=== PATIENT | female | born 1990 | race Caucasian/White ===

== ENCOUNTER 2016-10-01 12:51 | Emergency (ER) | payer SELFPAY ==
[2016-10-01 13:00] VITALS: BP 117/80
--- NOTE | 2016-10-01 13:15 | ER Document Report ---
ED Medical Screen (RME) - General Chief Complaint: Abdominal Pain Stated Complaint: ABDOMINAL PAIN/DIZZINESS Notes: Patient says she's been experiencing pelvic pain for the past 3 months and is getting worse. She has this pain every day, but at times its worst and others. It's across the entire pelvic region, but primarily in the left lower quadrant region. For the past couple of days, she has felt dizzy and lightheaded with some nausea, but she has not vomited. Has urinary frequency but no other UTI symptoms. Has felt hot and cold, but not had a fever. [facility] the same condition, but she says that she was prescribed tramadol and then codeine without relief of her pain. She is unable to go back to that facility because of finances. LMP 09/09. Patient is on control pills and is taking them as prescribed. Only surgical procedures have been a couple of D&Cs. TRAVEL OUTSIDE OF THE [place] IN LAST 30 DAYS: No - Related Data Allergies/Adverse Reactions: No Known Allergies Allergy (Verified 10/01/16 13:06) Past Medical History - Past Medical History Cardiac Medical History: Denies: Hx Coronary Artery Disease, Hx Heart Attack, Hx Hypertension Pulmonary Medical History: Denies: Hx Asthma, Hx Bronchitis, Hx COPD, Hx Pneumonia Neurological Medical History: Denies: Hx Cerebrovascular Accident, Hx Seizures Renal/ Medical History: Reports: Hx Pelvic Inflammatory Disease. Denies: Hx Peritoneal Dialysis Musculoskeltal Medical History: Denies Hx Arthritis - Immunizations Hx Diphtheria, Pertussis, Tetanus Vaccination: Yes - given today Physical Exam - Vital signs Vitals: Temp Pulse Resp BP Pulse Ox 98.3 F 92 20 117/80 100 10/01/16 12:58 10/01/16 12:58 10/01/16 12:58 10/01/16 12:58 10/01/16 12:58 Course - Vital Signs Vital signs: Temp Pulse Resp BP Pulse Ox 98.3 F 92 20 117/80 100 10/01/16 12:58 10/01/16 12:58 10/01/16 12:58 10/01/16 12:58 10/01/16 12:58
[2016-10-01 13:40] LABS: ABSOLUTE LYMPHOCYTES (AUTO) 1.7 10^3/uL (0.5-4.7); ABSOLUTE MONOCYTES (AUTO) 0.3 10^3/uL (0.1-1.4); ABSOLUTE NEUT (AUTO) 2.7 10^3/uL (1.7-8.2); BASOPHILS % (AUTO) 0.4 % (0-2); EOSINOPHILS % (AUTO) 0.6 % (0-6); HEMATOCRIT 42.2 % (36.0-47.0); HEMOGLOBIN 14.4 g/dL (12.0-15.5); LYMPHOCYTES % (AUTO) 35.3 % (13-45); MEAN CORPUSCULAR HEMOGLOBIN 28.9 pg (27.0-33.4); MEAN CORPUSCULAR HGB CONC 34.1 g/dL (32.0-36.0); MEAN CORPUSCULAR VOLUME 85 fl (80-97); RED BLOOD COUNT 4.97 10^6/uL (3.72-5.28); RED CELL DISTRIBUTION WIDTH 12.8 % (11.5-14.0); SEGMENTED NEUTROPHILS % (AUTO) 57.7 % (42-78); WHITE BLOOD COUNT 4.7 10^3/uL (4.0-10.5)
[2016-10-01 13:48] LABS: ALANINE AMINOTRANSFERASE 27 U/L (9-52); ALBUMIN 4.6 g/dL (3.5-5.0); ALKALINE PHOSPHATASE 59 U/L (38-126); ANION GAP 13 (5-19); ASPARTATE AMINO TRANSFERASE 21 U/L (14-36); BILIRUBIN,DIRECT 0.2 mg/dL (0.0-0.4); BILIRUBIN,TOTAL 0.5 mg/dL (0.2-1.3); BLOOD UREA NITROGEN 14 mg/dL (7-20); CARBON DIOXIDE 24 mmol/L (22-30); CHLORIDE 103 mmol/L (98-107); CREATININE RESULT 0.72 mg/dL (0.52-1.25); GLUCOSE 97 mg/dL (75-110); LIPASE 75.7 U/L (23-300); SODIUM 139.5 mmol/L (137-145); TOTAL PROTEIN 7.3 g/dL (6.3-8.2)
[2016-10-01 13:50] LABS: POTASSIUM 4.8 mmol/L (3.6-5.0)
[2016-10-01 13:50] LABS: APPEARANCE,URINE CLEAR; BILIRUBIN,URINE NEGATIVE (NEGATIVE); GLUCOSE, URINE NEGATIVE (NEGATIVE); KETONES,URINE NEGATIVE (NEGATIVE); LEUKOCYTE ESTERASE,URINE SMALL (NEGATIVE); NITRITE,URINE NEGATIVE (NEGATIVE); PROTEIN,URINE NEGATIVE (NEGATIVE); URINE SPECIFIC GRAVITY 1.003; UROBILINOGEN,URINE NEGATIVE mg/dL (<2.0)
[2016-10-01] MEDS ORDERED: SULFAMETHOXAZOLE/TRIMETHOPRIM 800-160 MG TABLET PO ONE (15:48)
--- NOTE | 2016-10-01 18:03 | ER Document Report ---
ED General - General Chief Complaint: Abdominal Pain Stated Complaint: ABDOMINAL PAIN/DIZZINESS TRAVEL OUTSIDE OF THE [place] IN LAST 30 DAYS: No - HPI Patient complains to provider of: abdominal pain Notes: Patient coming in for suprapubic abdominal pain cramping ongoing for 3 months off and on states worse today in the last few days. Patient states he has been evaluated by [facility] pass recommend ultrasound however patient lost her insurance and cannot afford this time. Patient states she is currently on control medications. No fevers or chills no nausea no vomiting no dysuria but does have urinary frequency. Patient states proximal one month ago she was on Macrobid for urinary tract infection however was told by the urgent care clinic that the urinary tract infection didn't clear. - Related Data Allergies/Adverse Reactions: No Known Allergies Allergy (Verified 10/01/16 13:06) Home Medications: Current Home Medications Levonorgestrel-Ethin Estradiol [Lutera-28 Tablet] 1 tab PO DAILY 10/01/16 [ History] Past Medical History - Social History Smoking Status: Current Every Day Smoker Chew tobacco use (# tins/day): Yes Frequency of alcohol use: None Drug Abuse: None Family History: Malignancy. denies: None, Reviewed & Not Pertinent, Arthritis, CAD, CVA, DM, Hyperlipidemia, Hypertension, Thyroid Disfunction, Other Patient has suicidal ideation: No Patient has homicidal ideation: No - Past Medical History Cardiac Medical History: Denies: Hx Coronary Artery Disease, Hx Heart Attack, Hx Hypertension Pulmonary Medical History: Denies: Hx Asthma, Hx Bronchitis, Hx COPD, Hx Pneumonia Neurological Medical History: Denies: Hx Cerebrovascular Accident, Hx Seizures Renal/ Medical History: Reports: Hx Pelvic Inflammatory Disease. Denies: Hx Peritoneal Dialysis Musculoskeltal Medical History: Denies Hx Arthritis Past Surgical History: Reports: Hx Gynecologic Surgery - d & c - Immunizations Hx Diphtheria, Pertussis, Tetanus Vaccination: Yes - given today Review of Systems - Review of Systems Constitutional: No symptoms reported EENT: No symptoms reported Cardiovascular: No symptoms reported Respiratory: No symptoms reported Gastrointestinal: Abdominal pain Genitourinary: No symptoms reported Female Genitourinary: No symptoms reported Musculoskeletal: No symptoms reported Skin: No symptoms reported Hematologic/Lymphatic: No symptoms reported Neurological/Psychological: No symptoms reported Physical Exam - Vital signs Vitals: Temp Pulse Resp BP Pulse Ox 98.3 F 92 20 117/80 100 04/19/17 12:58 10/01/16 12:58 10/01/16 12:58 10/01/16 12:58 10/01/16 12:58 Interpretation: Normal - General General appearance: Appears well, Alert - HEENT Head: Normocephalic, Atraumatic Eyes: Normal Pupils: PERRL - Respiratory Respiratory status: No respiratory distress Chest status: Nontender Breath sounds: Normal Chest palpation: Normal - Cardiovascular Rhythm: Regular Heart sounds: Normal auscultation Murmur: No - Abdominal Inspection: Normal Distension: No distension Bowel sounds: Normal Tenderness: Nontender Organomegaly: No organomegaly - Back Back: Normal, Nontender - Extremities General upper extremity: Normal inspection, Nontender, Normal color, Normal ROM , Normal temperature General lower extremity: Normal inspection, Nontender, Normal color, Normal ROM , Normal temperature, Normal weight bearing. No: David's sign - Neurological Neuro grossly intact: Yes Cognition: Normal Orientation: AAOx4 [place] Coma Scale Eye Opening: Spontaneous [place] Coma Scale Verbal: Oriented [place] Coma Scale Motor: Obeys Commands [place] Coma Scale Total: 15 Speech: Normal Motor strength normal: LUE, RUE, LLE, RLE Sensory: Normal - Psychological Associated symptoms: Normal affect, Normal mood - Skin Skin Temperature: Warm Skin Moisture: Dry Skin Color: Normal Course - Re-evaluation Re-evalutation: 10/01/16 19:15 Lab work and ultrasound revealed no critical etiology. Possible urinary tract infection. Patient will be given Bactrim for the next 7 days. Urine culture was sent. Patient was also recommend a follow-up with her [facility] if pain continues possible follow-up with urologist. Patient states an understanding will be discharged home. - Vital Signs Vital signs: Temp Pulse Resp BP Pulse Ox 98.3 F 92 18 117/80 100 10/01/16 12:58 10/01/16 12:58 10/01/16 13:30 10/01/16 12:58 10/01/16 12:58 - Laboratory Result Diagrams: 10/01/16 13:15 10/01/16 13:15 Laboratory results interpreted by me: 10/01/16 13:20 Urine Blood SMALL H Ur Leukocyte Esterase SMALL H Discharge - Discharge Clinical Impression: Lower abdominal pain UTI (urinary tract infection) Qualifiers: Urinary tract infection type: site unspecified Hematuria presence: without hematuria Qualified Code(s): N39.0 - Urinary tract infection, site not specified Condition: Good Disposition: HOME, SELF-CARE Instructions: Abdominal Pain ([facility]), Urinary Tract Infection ([facility]) Additional Instructions: Ultrasound does not show any acute abnormality. Your urinalysis that shows signs of infection. Please take the antibiotics to completion. You asked the pharmacist about [id number] Azo for your pain. Continues take Tylenol Motrin also for your pain. Return to the ER symptoms worsen Prescriptions: Phenazopyrid/Cran/Vit C/B.coag [Azo Urinary Tract Health Pack] 1 each PO TID # 20 tablet Sulfamethoxazole/Trimethoprim [Bactrim 400-80 mg Tablet] 1 each PO BID #14 tablet Forms: Return to Work
== END 2016-10-01 18:32 | disposition home or self-care (01) ==
LOC: ER 12:51
DX: N39.0 Urinary tract infection, site not specified (principal); R10.30 Lower abdominal pain, unspecified; R42 Dizziness and giddiness; F17.200 Nicotine dependence, unspecified, uncomplicated
CPT/HCPCS: 36415; 76856; 80053; 81001; 83690; 84703; 85025; 87086; 99284

== ENCOUNTER 2016-12-03 12:32 | Emergency (ER) | payer SELFPAY ==
--- NOTE | 2016-12-03 13:07 | ER Document Report ---
HPI - HPI Patient complains to provider of: sore throat Pain Level: 3 Context: 26 yo female c/o sore throat, fever, cough x 3 days. boyfriend with similar symptoms Associated Symptoms: Body/muscle aches, Chills, Nonproductive cough, Diarrhea, Fever Exacerbated by: Denies Relieved by: Denies Similar symptoms previously: No Recently seen / treated by doctor: No - REPRODUCTIVE Reproductive: REPORTS: : - DERM Skin Color: Normal Past Medical History - General Information source: Law Enforcement - Social History Smoking Status: Never Smoker Frequency of alcohol use: None Drug Abuse: None Lives with: Family Family History: Malignancy. denies: None, Reviewed & Not Pertinent, Arthritis, CAD, CVA, DM, Hyperlipidemia, Hypertension, Thyroid Disfunction, Other Patient has suicidal ideation: No Patient has homicidal ideation: No - Past Medical History Cardiac Medical History: Denies: Hx Coronary Artery Disease, Hx Heart Attack, Hx Hypertension Pulmonary Medical History: Denies: Hx Asthma, Hx Bronchitis, Hx COPD, Hx Pneumonia Neurological Medical History: Denies: Hx Cerebrovascular Accident, Hx Seizures Renal/ Medical History: Reports: Hx Pelvic Inflammatory Disease. Denies: Hx Peritoneal Dialysis Musculoskeltal Medical History: Denies Hx Arthritis Past Surgical History: Reports: Hx Gynecologic Surgery - d & c - Immunizations Hx Diphtheria, Pertussis, Tetanus Vaccination: Yes - given today Vertical Provider Document - CONSTITUTIONAL Agree With Documented VS: Yes Exam Limitations: No Limitations - INFECTION CONTROL TRAVEL OUTSIDE OF THE [place] IN LAST 30 DAYS: No - HEENT HEENT: Atraumatic, PERRLA, Pharyngeal Tenderness, Pharyngeal Erythema. negative : Pharyngeal Exudate - NECK Neck: Normal Inspection, Supple - RESPIRATORY Respiratory: Breath Sounds Normal, No Respiratory Distress O2 Sat by Pulse Oximetry: 100 - CARDIOVASCULAR Cardiovascular: Regular Rate, Regular Rhythm - GI/ABDOMEN Gastrointestinal: Abdomen Soft - BACK Back: Normal Inspection - MUSCULOSKELETAL/EXTREMETIES Musculoskeletal/Extremeties: NIMCO WRIGHT - NEURO Level of Consciousness: Awake, Alert, Appropriate - DERM Integumentary: Warm, Dry, No Rash Course - Vital Signs Vital signs: Temp Pulse Resp BP Pulse Ox 99.0 F 84 16 122/79 100 12/03/16 12:38 12/03/16 12:38 12/03/16 12:38 12/03/16 12:38 12/03/16 12:38 Discharge - Discharge Clinical Impression: Sore throat URI (upper respiratory infection) Qualifiers: URI type: unspecified viral URI Qualified Code(s): J06.9 - Acute upper respiratory infection, unspecified Instructions: Acetaminophen, Fever ([facility]), Upper Respiratory Illness ([facility]), Viral Syndrome ([facility]), Cough Suppressant & Expectorant Medications Additional Instructions: take meds as prescribed lozenges, salt water gargles push fuids rest, hydrate follow up with primary care if symptoms persist Prescriptions: Phenylephrine HCl/Cod/Prometh [Phenergan Vc-Codeine Syrup] 5 - 10 ml PO Q4H # 120 ml Forms: Return to Work
[2016-12-03 14:23] VITALS: BP 101/70
== END 2016-12-03 14:23 | disposition home or self-care (01) ==
LOC: ER 12:32
DX: J02.9 Acute pharyngitis, unspecified (principal); J06.9 Acute upper respiratory infection, unspecified; R50.9 Fever, unspecified; M79.1 Myalgia
CPT/HCPCS: 87070; 87880; 99283

== ENCOUNTER 2017-07-29 07:01 | Day surgery (SDC) | payer BC, OTHER ==
[2017-07-21 10:44] LABS: HEMATOCRIT 39.4 % (36.0-47.0); HEMOGLOBIN 13.4 g/dL (12.0-15.5); MEAN CORPUSCULAR HEMOGLOBIN 30.3 pg (27.0-33.4); MEAN CORPUSCULAR VOLUME 89 fl (80-97); PLATELET COUNT 191 10^3/uL (150-450); RED BLOOD COUNT 4.42 10^6/uL (3.72-5.28); WHITE BLOOD COUNT 5.4 10^3/uL (4.0-10.5)
[2017-07-21 10:46] LABS: APPEARANCE,URINE SLIGHTLY-CLOUDY; BILIRUBIN,URINE NEGATIVE (NEGATIVE); COLOR,URINE YELLOW; GLUCOSE, URINE NEGATIVE (NEGATIVE); KETONES,URINE NEGATIVE (NEGATIVE); LEUKOCYTE ESTERASE,URINE NEGATIVE (NEGATIVE); NITRITE,URINE NEGATIVE (NEGATIVE); PROTEIN,URINE NEGATIVE (NEGATIVE); URINE SPECIFIC GRAVITY 1.019; UROBILINOGEN,URINE NEGATIVE mg/dL (<2.0)
[~2017-07-29 07:01] MED LIST: DOXYCYCLINE HYCLATE 100 MG in DEXTROSE 5%-WATER 250 ML IV PRN; LACTATED RINGERS 1000 ML IV PRN; LIDOCAINE 0.5% INJ-PF (5 MG/ML) 50 ML SDV SUBCUT PRN
[2017-07-29] MEDS ORDERED: LIDOCAINE 1%/EPINEPHRINE INJ 20 ML VIAL ONE (07:16)
[2017-07-29] MEDS ORDERED: MIDAZOLAM 2 MG/2 ML INJ ONE (09:31)
[2017-07-29] MEDS ORDERED: PROPOFOL INJ 200 MG/20 ML VIAL IV ONE (09:31)
[2017-07-29] MEDS ORDERED: FENTANYL CITRATE INJ/PF 100 MCG/2 ML AMPUL ONE ×2 (09:31→10:53)
[2017-07-29] MEDS ORDERED: ACETAMINOPHEN 100 ML IV ONE (09:31)
[2017-07-29] MEDS ORDERED: FENTANYL CITRATE INJ/PF 100 MCG/2 ML AMPUL IV PRN ×3 (09:59)
[2017-07-29] MEDS ORDERED: MEPERIDINE HCL/PF INJ 25 MG/1 ML DISP.SYRIN IV PRN (09:59)
[2017-07-29] MEDS ORDERED: DIPHENHYDRAMINE HCL 50 MG/ML VIAL IV PRN (09:59)
[2017-07-29] MEDS ORDERED: OXYCODONE-ACETAMINOPHEN 5-325 MG TABLET PO PRN ×4 (09:59→11:15)
[2017-07-29] MEDS ORDERED: PROMETHAZINE HCL INJ 25 MG/1 ML VIAL IV PRN ×2 (09:59)
[2017-07-29] MEDS ORDERED: MORPHINE SULFATE 10 MG/ML INJ IV PRN (09:59)
[2017-07-29] MEDS ORDERED: IBUPROFEN 800 MG TABLET PO PRN (11:14)
[2017-07-29] MEDS ORDERED: RINGERS SOLUTION,LACTATED 1,000 ML IV PRN (11:14)
[2017-07-29] MEDS ORDERED: HYDROMORPHONE HCL INJ/PF 2 MG/ML AMPULE IV PRN ×2 (11:15→11:16)
[2017-07-29] MEDS ORDERED: ONDANSETRON HCL INJ/PF 4 MG/2 ML SDV IV PRN (11:15)
[2017-07-29 12:28] VITALS: BP 115/81
[2017-07-29] MEDS ORDERED: SUCCINYLCHOLINE CHLORIDE INJ 200 MG/10 ML VIAL ONE (16:44)
[2017-07-29] MEDS ORDERED: LIDOCAINE 2% INJ-PF (20 MG/ML) 2 ML AMPUL ONE (16:44)
--- NOTE | 2017-08-21 07:17 | Operative Report ---
Operative Report DATE OF SURGERY: 07/29/17 Operative Report: EUA, Paracervical Block, Hysteroscopy, D&C PREOPERATIVE DIAGNOSIS: Thickened endometrium, Dysfunctional Uterine Bleeding POSTOPERATIVE DIAGNOSIS: LUI, possible uterine septum OPERATION: EUA, Paracervical Block, Hysteroscopy, D&C SURGEON: LUCIA FORTUNE ANESTHESIA: KEIRY - Cori RICHARD TISSUE REMOVED OR ALTERED: EMC COMPLICATIONS: None ESTIMATED BLOOD LOSS: 5ml INTRAOPERATIVE FINDINGS: small anteverted uterus, no adnexal masses, no uterine polyps, poss small uterine septum versus arcuate uterus. thickened appearing proliferative endometrium PROCEDURE: Anesthesia: [Cori RICHARD, Ping Helms [employer] TE[employer] DRA[employer]ER] IVF: [450ml] UOP: void prior to OR Indications: [26yo with DUB despite COCPs and DepoProvera. US done with thickened appearing endometrium. The risks benefits and alternatives were reviewed and the patient desires to proceed with planned procedure.] Procedure: The patient was taken to the Operating Room where general anesthesia was obtained without difficulty. She was prepped and draped in the normal sterile fashion in the dorsal lithotomy position. Exam under anesthesia was performed and noted above. A speculum was placed in the vagina. The anterior cervix was grasped with a single-tooth tenaculum and the uterus sounded to 8 cm after paracervical block was performed with 8 mL of 1% lidocaine with epinephrine. Sequential dilators were then used to dilate the cervix to accommodate the Myosure hysteroscope. The hysteroscope was then gently advanced into the uterine cavity in the usual fashion with visualization of the thickened endometrial lining as noted above. Since no endometrial polyps noted the Myosure was not needed. The hysteroscope was then removed. At this time gentle curettage was performed until a gritty texture was noted. All instruments were removed from the patient's cervix and vagina. Silver nitrate was applied to the tenaculum site for hemostasis. Sponge lap needle and instrument counts are correct 2. No perioperative antibiotics were given as is not indicated for this procedure. The patient tolerated the procedure well and was taken to the recovery area awake and in stable condition.
== END 2017-07-29 12:23 | disposition home or self-care (01) ==
LOC: OROUT 07:01
PROVIDERS: ATTEND Student in an Organized Health Care Education/Training Program
PROC: 0UDB8ZX Extraction of Endometrium, Via Natural or Artificial Opening Endoscopic, Diagnostic (ICD-10-PCS; principal; 2017-07-29 09:15)
DX: N92.1 Excessive and frequent menstruation with irregular cycle (principal); F17.210 Nicotine dependence, cigarettes, uncomplicated
CPT/HCPCS: 36415; 85027; 81025; 81001; 88305 ×2; 58558; J2250; J3490 ×3; J3010; J0330; J7060; J2704; J0131; 952

== ENCOUNTER 2017-09-01 15:03 | Emergency (ER) | payer OTHER ==
[2017-09-01 15:12] VITALS: BP 120/76
--- NOTE | 2017-09-01 15:32 | ER Document Report ---
ED Respiratory Problem - General Chief Complaint: Cough Stated Complaint: COUGH Time Seen by Provider: 09/01/17 15:23 Mode of Arrival: Ambulatory Information source: Patient TRAVEL OUTSIDE OF THE [place] IN LAST 30 DAYS: No - HPI Patient complains to provider of: Cough Notes: Patient is here with complaints of cough, fever, body aches for the last 4 days. She has pain in her chest with cough only. She denies any shortness of breath. She denies any chest pain currently. She denies any lung disease. She denies any chronic medical conditions. She does report that her son had the flu a few weeks ago. She denies any abdominal pain. No nausea, vomiting, diarrhea. No rash. No numbness, tingling, weakness. No syncope. No dizziness. She denies any other complaints at this time. She states that her temp got up to as high as 103 at the onset. - Related Data Allergies/Adverse Reactions: No Known Allergies Allergy (Verified 09/01/17 15:30) Past Medical History - Social History Smoking Status: Unknown if Ever Smoked Family History: Malignancy. denies: None, Reviewed & Not Pertinent, Arthritis, CAD, CVA, DM, Hyperlipidemia, Hypertension, Thyroid Disfunction, Other - Past Medical History Cardiac Medical History: Denies: Hx Coronary Artery Disease, Hx Heart Attack, Hx Hypertension Pulmonary Medical History: Denies: Hx Asthma, Hx Bronchitis, Hx COPD, Hx Pneumonia Neurological Medical History: Denies: Hx Cerebrovascular Accident, Hx Seizures Renal/ Medical History: Reports: Hx Pelvic Inflammatory Disease. Denies: Hx Peritoneal Dialysis Musculoskeltal Medical History: Denies Hx Arthritis Past Surgical History: Reports: Hx Gynecologic Surgery - d & c - Immunizations Hx Diphtheria, Pertussis, Tetanus Vaccination: Yes Review of Systems - Review of Systems -: Yes All other systems reviewed and negative Physical Exam - Vital signs Vitals: Temp Pulse Resp BP Pulse Ox 97.9 F 100 16 120/76 96 09/01/17 15:11 09/01/17 15:11 09/01/17 15:11 09/01/17 15:11 09/01/17 15:11 - Notes Notes: GENERAL: alert, cooperative, nontoxic, no distress. HEAD: normocephalic, atraumatic EYES: conjunctiva pink without discharge, no external redness or swelling. EARS: no external swelling, no external redness, no mastoid redness, swelling, tenderness. Ear canals are clear without swelling or drainage. TMs pearly alfonso , no redness, no bulging, normal landmarks, no perforation. NOSE: atraumatic, no external swelling. clear rhinorrhea noted. MOUTH/THROAT: mucous membranes moist and pink, posterior pharynx without erythema, swelling, exudate. No trismus or drooling. NECK: soft, supple, full range of motion, no meningismus. CHEST: no distress, lungs clear and equal throughout. No wheezing, rales, rhonchi. CARDIAC: regular rate and rhythm, no murmur, normal capillary refill, normal pulses. No peripheral edema noted. BACK: full range of motion, no CVA tenderness. EXTREMITIES: full range of motion of all extremities. No redness, no swelling. NEURO: alert and oriented A&O3, no focal deficits, full range of motion of all extremities. PYSCH: appropriate mood, affect. Patient is cooperative. SKIN: pink, warm, dry, no rash. Course - Re-evaluation Re-evalutation: 09/01/17 15:57 Patient is nontoxic appearing with stable vitals. She is here with cough, nasal congestion, sneezing, body aches, fever started 4 days ago. Temps as high as 103. She reports that her son had influenza recently. On exam she has no significant findings. She is in no distress. Lungs are clear. Vital signs are stable with no hypoxia. Patient has no chronic medical conditions. Chest x -ray shows no acute abnormality per the radiologist. It is likely that the patient could have influenza since she was recently exposed to influenza by her son. Due to the fact that she is young, healthy, has had symptoms for greater than 48 hours, I am not performing a flu swab as this will not change our treatment at this time. Patient will be discharged home with a prescription for Flonase, Claritin-D, Tessalon, Naprosyn. Follow-up if not better in the next 5 days, sooner for worsening symptoms, difficulty breathing, persistent vomiting, or for any further concerns. The patient's emergency department workup and current diagnosis were explained to the patient and or family. Follow-up instructions were provided. Medications if prescribed were discussed. Instructions for when to return to the emergency department including specific worrisome symptoms were discussed with the patient and/or family. - Vital Signs Vital signs: Temp Pulse Resp BP Pulse Ox 97.9 F 100 16 120/76 96 09/01/17 15:11 09/01/17 15:11 09/01/17 15:11 09/01/17 15:11 09/01/17 15:11 - Diagnostic Test Radiology reviewed: Image reviewed, Reports reviewed - Negative chest x-ray Discharge - Discharge Clinical Impression: Viral syndrome Upper respiratory infection Qualifiers: URI type: unspecified viral URI Qualified Code(s): J06.9 - Acute upper respiratory infection, unspecified Condition: Stable Disposition: HOME, SELF-CARE Instructions: Upper Respiratory Illness ([facility]), Viral Syndrome ([facility]) Additional Instructions: Take medications as prescribed. Rest. Drink plenty of fluids. Follow-up with your doctor if not better in 5 days, sooner for worsening symptoms, persistent vomiting, difficulty breathing, or for any further concerns. Prescriptions: Benzonatate [Tessalon Perle 100 mg Capsule] 100 mg PO Q8HP PRN #20 cap PRN Reason: Desloratadine/Pseudoephedrine [Clarinex-D 12 Hour Tablet] 1 each PO Q12 PRN #14 tbmp.12hr PRN Reason: Fluticasone Propionate [Flonase Nasal Danielson 50 Mcg/Danielson 16 gm] 1 spray NASL Q12 #1 inhaler Naproxen [Naprosyn] 500 mg PO BID #20 tablet Forms: Elevated Blood Pressure, Smoking Cessation Education Referrals: [facility] [Provider Group] - Follow up as needed
--- NOTE | 2017-09-01 15:50 | RADIOLOGY REPORT (SQ) ---
EXAM DESCRIPTION: CHEST PA/LAT COMPLETED DATE/TIME: 09/01/2017 3:42 pm REASON FOR STUDY: fever, cough COMPARISON: 07/19/2014 EXAM PARAMETERS: NUMBER OF VIEWS: two views TECHNIQUE: Digital Frontal and Lateral radiographic views of the chest acquired. RADIATION DOSE: NA LIMITATIONS: none FINDINGS: LUNGS AND PLEURA: No opacities, masses or pneumothorax. No pleural effusion. MEDIASTINUM AND HILAR STRUCTURES: No masses or contour abnormalities. HEART AND VASCULAR STRUCTURES: Heart normal size. No evidence for failure. BONES: No acute findings. HARDWARE: None in the chest. OTHER: No other significant finding. IMPRESSION: NO SIGNIFICANT RADIOGRAPHIC FINDING IN THE CHEST. TECHNICAL DOCUMENTATION: JOB ID: [id number] [employer]- All Rights Reserved Reading location - IP/workstation name: [email or web address]
== END 2017-09-01 16:00 | disposition home or self-care (01) ==
LOC: ER 15:03
DX: J06.9 Acute upper respiratory infection, unspecified (principal); B97.89 Other viral agents as the cause of diseases classified elsewhere; R05 Cough; R50.9 Fever, unspecified; R07.89 Other chest pain; R09.81 Nasal congestion; R06.7 Sneezing
CPT/HCPCS: 71046; 99283

== ENCOUNTER 2018-01-19 09:42 | Emergency (ER) | payer OTHER ==
[2018-01-19] MEDS ORDERED: VALACYCLOVIR HCL 500 MG TABLET PO ONE (10:49)
[2018-01-19] MEDS ORDERED: PREDNISONE 20 MG TABLET PO ONE (10:49)
--- NOTE | 2018-01-19 10:53 | ER Document Report ---
ED Head/Face/Scalp Injury - General Chief Complaint: Facial Injury Stated Complaint: HEADACHE, MOUTH/EYE ISSUE Time Seen by Provider: 01/19/18 10:48 Mode of Arrival: Ambulatory Information source: Patient Notes: Chief complaint: Right facial weakness History of complain:( obtained from----patient) 27 years old female presents today with right facial weakness numbness tingling sensation as well as partial loss of taste on the right side of the tongue. Since about 3-4 days ago it started and got worse 2 days ago. No headache no other focal weaknesses numbness tingling sensation. No fever chills or other constitutional symptoms. Onset: As above gradual Duration: As above last few days Severity: Mild to moderate Quality: Not applicable Context: Unknown Exacerbating factor and relieving factors: None REVIEW OF SYSTEMS: CONSTITUTIONAL : Denies fever, chills, or sweats. Denies recent illness. EENT: Denies eye, ear, throat, or mouth pain or symptoms. Denies nasal or sinus congestion or discharge. Denies throat, tongue, or mouth swelling or difficulty swallowing. CARDIOVASCULAR: Denies chest pain. Denies palpitations or racing or irregular heart beat. Denies ankle edema. RESPIRATORY: Denies cough, cold, or chest congestion. Denies shortness of breath, difficulty breathing, or wheezing. GASTROINTESTINAL: Denies distention. Denies nausea, vomiting, or diarrhea. Denies blood in vomitus, stools, or per rectum. Denies black, tarry stools. Denies constipation. GENITOURINARY: Denies difficulty urinating, painful urination, burning, frequency, blood in urine, or discharge. FEMALE GENITOURINARY: Denies vaginal bleeding, heavy or abnormal periods, irregular periods. Denies vaginal discharge or odor. MUSCULOSKELETAL: Denies back or neck pain or stiffness. Denies joint pain or swelling. SKIN: Denies rash, lesions or sores. HEMATOLOGIC : Denies easy bruising or bleeding. LYMPHATIC: Denies swollen, enlarged glands. NEUROLOGICAL: Denies confusion or altered mental status. Denies passing out or loss of consciousness. Denies dizziness or lightheadedness. Denies headache. Denies weakness or paralysis or loss of use of either side. Denies problems with gait or speech. Denies sensory loss, numbness, or tingling. Denies seizures. PSYCHIATRIC: Denies anxiety or stress. Denies depression, suicidal ideation, or homicidal ideation. ALL OTHER SYSTEMS REVIEWED AND NEGATIVE. PHYSICAL EXAMINATION: GENERAL: Well-appearing, well-nourished and in no acute distress. HEAD: Atraumatic, normocephalic. EYES: Pupils equal round and reactive to light, extraocular movements intact, conjunctiva are normal. ENT: Nares patent, oropharynx clear without exudates. Moist mucous membranes. NECK: Normal range of motion, supple without lymphadenopathy LUNGS: Breath sounds clear to auscultation bilaterally and equal. No wheezes rales or rhonchi. HEART: Regular rate and rhythm without murmurs ABDOMEN: Soft, nontender, nondistended abdomen. No guarding, no rebound. No masses appreciated. Examination of genitals-deferred Musculoskeletal: Normal range of motion, no pitting or edema. No cyanosis. NEUROLOGICAL: Right facial lower motor tone type of paralysis noted. Facial muscles was retracted towards the left side. No tongue deviation. Uvula appears to be in the center. Positive gag reflex. Pupils were equal reactive to light extraocular muscles movement were within normal range.. Normal speech , normal gait. Normal sensory, motor exams No pronator drift, strength in both upper limbs and lower limbs is 5/5. PSYCH: Normal mood, normal affect. SKIN: Warm, Dry, normal turgor, no rashes or lesions noted. Dictation was performed using iwi voice recognition software TRAVEL OUTSIDE OF THE [place] IN LAST 30 DAYS: No - HPI Notes: Dictated - Related Data Allergies/Adverse Reactions: No Known Allergies Allergy (Verified 09/01/17 15:30) Past Medical History - Social History Smoking Status: Current Every Day Smoker Frequency of alcohol use: None Drug Abuse: None Lives with: Family Family History: Reviewed & Not Pertinent, Malignancy. denies: None, Arthritis, CAD, CVA, DM, Hyperlipidemia, Hypertension, Thyroid Disfunction, Other Patient has suicidal ideation: No Patient has homicidal ideation: No - Past Medical History Cardiac Medical History: Denies: Hx Coronary Artery Disease, Hx Heart Attack, Hx Hypertension Pulmonary Medical History: Denies: Hx Asthma, Hx Bronchitis, Hx COPD, Hx Pneumonia Neurological Medical History: Denies: Hx Cerebrovascular Accident, Hx Seizures Renal/ Medical History: Reports: Hx Pelvic Inflammatory Disease. Denies: Hx Peritoneal Dialysis Musculoskeletal Medical History: Denies Hx Arthritis Past Surgical History: Reports: Hx Gynecologic Surgery - d & c; hysteroscopy - Immunizations Hx Diphtheria, Pertussis, Tetanus Vaccination: Yes Review of Systems - Review of Systems Notes: Dictated Physical Exam - Vital signs Vitals: Temp Pulse Resp BP Pulse Ox 98.7 F 86 14 131/73 H 98 01/19/18 10:14 01/19/18 10:14 01/19/18 10:14 01/19/18 10:14 01/19/18 10:14 - Notes Notes: Dictated Course - Vital Signs Vital signs: Temp Pulse Resp BP Pulse Ox 98.7 F 86 14 131/73 H 98 01/19/18 10:14 01/19/18 10:14 01/19/18 10:14 01/19/18 10:14 01/19/18 10:14 - Diagnostic Test Radiology reviewed: Reports reviewed - CT of the brain was negative reported by radiologist Discharge - Discharge Clinical Impression: Brito's palsy Condition: Fair Disposition: HOME, SELF-CARE Instructions: Brito's Palsy ([facility]) Prescriptions: Prednisone 10 mg PO ASDIR #1 tab.ds.pk Valacyclovir HCl [Valtrex] 1,000 mg PO TID #30 tablet
--- NOTE | 2018-01-19 11:32 | RADIOLOGY REPORT (SQ) ---
EXAM DESCRIPTION: CT HEAD WITHOUT COMPLETED DATE/TIME: 01/19/2018 11:24 am REASON FOR STUDY: Facial weakness COMPARISON: None. TECHNIQUE: Axial images acquired through the brain without intravenous contrast. Images reviewed wi th bone, brain and subdural windows. Additional sagittal and coronal reconstructions were generated. Images stored on PACS. All CT scanners at this facility use dose modulation, iterative reconstruction, and/or weight based d osing when appropriate to reduce radiation dose to as low as reasonably achievable (ALARA). [facility]: Dose Right [facility]: CareDose [facility]: Dose Right [facility]: Teradose 4D [facility]: M2TECH RADIATION DOSE: CT Rad equipment meets quality standard of care and radiation dose reduction techniq ues were employed. CTDIvol: 53.2 mGy. DLP: 1017 mGy-cm. mGy. LIMITATIONS: None. FINDINGS: VENTRICLES: Normal size and contour. CEREBRUM: No masses. No hemorrhage. No midline shift. No evidence for acute infarction. Normal gra y/white matter differentiation. No areas of low density in the white matter. CEREBELLUM: No masses. No hemorrhage. No alteration of density. No evidence for acute infarction. EXTRAAXIAL SPACES: No fluid collections. No masses. ORBITS AND GLOBE: No intra- or extraconal masses. Normal contour of globe without masses. CALVARIUM: No fracture. PARANASAL SINUSES: No fluid or mucosal thickening. SOFT TISSUES: No mass or hematoma. OTHER: No other significant finding. IMPRESSION: NORMAL BRAIN CT WITHOUT CONTRAST. EVIDENCE OF ACUTE STROKE: NO. COMMENT: Quality ID # [id number]: Final reports with documentation of one or more dose reduction techniques (e.g., Automated exposure control, adjustment of the mA and/or kV according to patient size, use of iterative reconstruction technique) TECHNICAL DOCUMENTATION: JOB ID: [id number] [employer]- All Rights Reserved Reading location - IP/workstation name: [email or web address]
[2018-01-19 12:31] VITALS: BP 109/72
== END 2018-01-19 12:30 | disposition home or self-care (01) ==
LOC: ER 09:42
DX: G51.0 Bell's palsy (principal); R51 Headache; R20.0 Anesthesia of skin; F17.200 Nicotine dependence, unspecified, uncomplicated
CPT/HCPCS: 99284; 81025; 70450; J7512

== ENCOUNTER 2018-01-25 13:12 | Emergency (ER) | payer OTHER ==
[2018-01-25] MEDS ORDERED: IPRATROPIUM/ALBUTEROL 0.5-2.5 MG/3 ML AMPUL NEB ONE (14:42)
[2018-01-25] MEDS ORDERED: ACETAMINOPHEN 325 MG TABLET PO ONE (14:42)
[2018-01-25] MEDS ORDERED: PREDNISONE 20 MG TABLET PO ONE (14:42)
--- NOTE | 2018-01-25 14:43 | ER Document Report ---
HPI - HPI Patient complains to provider of: Cough Onset/Duration: Gradual Pain Level: Denies Context: Patient presents complaining of a four-day history of productive cough with congestion. Patient does report sinus headache. No fever. No nausea or vomiting. Associated Symptoms: Nonproductive cough, Rhinnorhea, Sinus pain/drainage. denies: Earache, Fever, Vomiting Exacerbated by: Denies Relieved by: Denies Similar symptoms previously: No Recently seen / treated by doctor: No - ROS ROS below otherwise negative: Yes Systems Reviewed and Negative: Yes All other systems reviewed and negative - CONSTITUTIONAL Constitutional: DENIES: Fever, Chills - EENT EENT: REPORTS: Nasal Drainage-Clear, Congestion. DENIES: Sore Throat, Ear Pain , Eye problems - NEURO Neurology: DENIES: Headache, Weakness - CARDIOVASCULAR Cardiovascular: DENIES: Chest pain - RESPIRATORY Respiratory: REPORTS: Coughing. DENIES: Trouble Breathing - GASTROINTESTINAL Gastrointestinal: DENIES: Abdominal Pain, Patient vomiting, Black / Bloody Stools - URINARY Urinary: DENIES: Dysuria, Urgency, Frequency - MUSCULOSKELETAL Musculoskeletal: DENIES: Extremity pain - DERM Skin Color: Normal Skin Problems: None Past Medical History - General Information source: Patient - Social History Smoking Status: Current Every Day Smoker Smoking Education Provided: Yes Frequency of alcohol use: None Drug Abuse: None Occupation: College manager technical Lives with: Family Family History: Reviewed & Not Pertinent, Malignancy. denies: None, Arthritis, CAD, CVA, DM, Hyperlipidemia, Hypertension, Thyroid Disfunction, Other Patient has suicidal ideation: No Patient has homicidal ideation: No - Medical History Medical History: Negative Pulmonary Medical History: Denies: Hx Asthma Renal/ Medical History: Reports: Hx Pelvic Inflammatory Disease. Denies: Hx Peritoneal Dialysis Musculoskeletal Medical History: Denies Hx Arthritis Past Surgical History: Reports: Hx Gynecologic Surgery - d & c; hysteroscopy - Immunizations Hx Diphtheria, Pertussis, Tetanus Vaccination: Yes Vertical Provider Document - CONSTITUTIONAL Agree With Documented VS: Yes Exam Limitations: No Limitations General Appearance: WD/WN, No Apparent Distress - INFECTION CONTROL TRAVEL OUTSIDE OF THE [place] IN LAST 30 DAYS: No - HEENT HEENT: Atraumatic, Normocephalic. negative: Pharyngeal Exudate, Pharyngeal Tenderness - NECK Neck: Normal Inspection, Supple. negative: Lymphadenopathy-Left, Lymphadenopathy-Right Notes: No meningismus - RESPIRATORY Respiratory: No Respiratory Distress, Chest Non-Tender, Wheezing - CARDIOVASCULAR Cardiovascular: Regular Rate, Regular Rhythm, No Murmur - BACK Back: Normal Inspection - MUSCULOSKELETAL/EXTREMETIES Musculoskeletal/Extremeties: NIMCO WRIGHT - NEURO Level of Consciousness: Awake, Alert, Appropriate Motor/Sensory: No Motor Deficit - DERM Integumentary: Warm, Dry, No Rash Course - Re-evaluation Re-evalutation: 01/25/18 16:05 Respirations even and unlabored, decreased wheezing after nebulizer treatment. Chest x-ray without any findings worrisome for pneumonia. Good return precautions given. Patient verbalized understanding agrees with plan of care. - Vital Signs Vital signs: Temp Pulse Resp BP Pulse Ox 98.3 F 102 H 18 130/84 H 99 01/25/18 13:21 01/25/18 13:21 01/25/18 13:21 01/25/18 13:21 01/25/18 13:21 - Diagnostic Test Radiology reviewed: Reports reviewed Discharge - Discharge Clinical Impression: Upper respiratory infection Qualifiers: URI type: unspecified URI Qualified Code(s): J06.9 - Acute upper respiratory infection, unspecified Condition: Stable Disposition: HOME, SELF-CARE Instructions: Acetaminophen, Inhaled Bronchodilators ([facility]), Steroid Medication , Upper Respiratory Illness ([facility]) Additional Instructions: Return immediately for any new or worsening symptoms Followup with your primary care provider, call tomorrow to make a followup appointment Prescriptions: Albuterol Sulfate [Ventolin Hfa] 2 puff IH Q4HP PRN #17 gm PRN Reason: Benzonatate [Tessalon Perle 100 mg Capsule] 100 mg PO Q8HP PRN #20 cap PRN Reason: Prednisone [Deltasone 10 mg Tablet] 10 mg PO ASDIR PRN #21 tablet PRN Reason: Forms: Smoking Cessation Education, Return to Work Referrals: [facility] [Provider Group] - Follow up as needed
--- NOTE | 2018-01-25 15:49 | RADIOLOGY REPORT (SQ) ---
EXAM DESCRIPTION: CHEST 2 VIEWS COMPLETED DATE/TIME: 01/25/2018 3:36 pm REASON FOR STUDY: cough COMPARISON: None. EXAM PARAMETERS: NUMBER OF VIEWS: two views TECHNIQUE: Digital Frontal and Lateral radiographic views of the chest acquired. RADIATION DOSE: NA LIMITATIONS: none FINDINGS: LUNGS AND PLEURA: No opacities, masses or pneumothorax. No pleural effusion. MEDIASTINUM AND HILAR STRUCTURES: No masses or contour abnormalities. HEART AND VASCULAR STRUCTURES: Heart normal size. No evidence for failure. BONES: No acute findings. HARDWARE: None in the chest. OTHER: No other significant finding. IMPRESSION: NO ACUTE RADIOGRAPHIC FINDING IN THE CHEST. TECHNICAL DOCUMENTATION: JOB ID: [id number] [employer]- All Rights Reserved Reading location - IP/workstation name: [email or web address]
[2018-01-25 16:17] VITALS: BP 126/67
== END 2018-01-25 16:20 | disposition home or self-care (01) ==
LOC: ER 13:12
DX: J06.9 Acute upper respiratory infection, unspecified (principal); J34.89 Other specified disorders of nose and nasal sinuses; R05 Cough; F17.200 Nicotine dependence, unspecified, uncomplicated
CPT/HCPCS: 94640; 99283; 71046; J7512; J7620

== ENCOUNTER 2018-04-07 10:56 | Emergency (ER) | payer OTHER ==
[2018-04-07 11:09] VITALS: BP 123/81
--- NOTE | 2018-04-07 11:35 | ER Document Report ---
ED ENT - General Chief Complaint: Ear Pain Stated Complaint: EARACHE, FEVER, HEADACHE, NAUSEA Time Seen by Provider: 04/07/18 11:24 Mode of Arrival: Ambulatory Information source: Patient Notes: Patient is a 27-year-old female comes emergency room today complaining of bilateral ear pain with congestion in the upper nose area. Patient also states that she had a fever up to 102.0 yesterday. Also a light cough. Ears seem to be worse when she lays down. She denies any other medical problems she is currently on oral control. And she is currently on her period. TRAVEL OUTSIDE OF THE [place] IN LAST 30 DAYS: No - HPI Patient complains to provider of: Ear problem, Nose problem Onset: Other - 3 days Onset/Duration: Gradual Quality of pain: Achy, Sharp Severity: Moderate Pain Level: 2 Context: Allergies Location of pain: Ears, Nose, Sinus Associated symptoms: Congestion, Cough, Ear pain, Fever Similar symptoms previously: No Recently seen / treated by doctor: No - Related Data Allergies/Adverse Reactions: No Known Allergies Allergy (Verified 04/07/18 10:57) Past Medical History - General Information source: Patient - Social History Smoking Status: Current Every Day Smoker Cigarette use (# per day): Yes - Pack a day Chew tobacco use (# tins/day): No Smoking Education Provided: Yes Frequency of alcohol use: Rare Drug Abuse: None Lives with: Family Family History: Reviewed & Not Pertinent, Malignancy. denies: None, Arthritis, CAD, CVA, DM, Hyperlipidemia, Hypertension, Thyroid Disfunction, Other Patient has suicidal ideation: No Patient has homicidal ideation: No - Past Medical History Cardiac Medical History: Denies: Hx Coronary Artery Disease, Hx Heart Attack, Hx Hypertension Pulmonary Medical History: Denies: Hx Asthma, Hx Bronchitis, Hx COPD, Hx Pneumonia Neurological Medical History: Denies: Hx Cerebrovascular Accident, Hx Seizures Renal/ Medical History: Reports: Hx Pelvic Inflammatory Disease. Denies: Hx Peritoneal Dialysis Musculoskeletal Medical History: Denies Hx Arthritis Past Surgical History: Reports: Hx Gynecologic Surgery - d & c; hysteroscopy - Immunizations Hx Diphtheria, Pertussis, Tetanus Vaccination: Yes Review of Systems - Review of Systems Constitutional: No symptoms reported, Fever EENT: See HPI, Ear pain, Nose congestion, Sinus pressure Cardiovascular: No symptoms reported Respiratory: See HPI, Cough Gastrointestinal: No symptoms reported Genitourinary: No symptoms reported Female Genitourinary: No symptoms reported Musculoskeletal: No symptoms reported Skin: No symptoms reported Hematologic/Lymphatic: No symptoms reported Neurological/Psychological: No symptoms reported -: Yes All other systems reviewed and negative Physical Exam - Vital signs Vitals: Temp Pulse Resp BP Pulse Ox 98.6 F 94 18 123/81 99 04/07/18 11:05 04/07/18 11:05 04/07/18 11:05 04/07/18 11:05 04/07/18 11:05 Interpretation: Normal - Notes Notes: PHYSICAL EXAMINATION: GENERAL: Well-appearing, well-nourished and in no acute distress. HEAD: Atraumatic, normocephalic. EYES: Pupils equal round and reactive to light, extraocular movements intact, conjunctiva are normal. ENT: Exam of the head and upper airway showed nasal mucosa to be mildly erythematous and edematous with some clear rhinorrhea noted. Patient has mild tenderness to palpation and pressure applied to the maxillary and frontal sinuses. Bilateral ears are examined the left ear shows moderate amount of wax on the post anterior wall but the TM is visualized and there is air-fluid levels noted and bulging TM. The right ear is similar in presentation with less wax noted. Again there is bulging of the TM with mild air-fluid levels. The fluid appears to be clear. Further examination of the oral cavity shows that the posterior pharynx has some mild erythema with some postnasal drainage clear in color. There uvula is midline with no encroachment. There is no exudates noted throughout the posterior pharynx. NECK: Normal range of motion, supple without lymphadenopathy LUNGS: Breath sounds clear to auscultation bilaterally and equal. No wheezes rales or rhonchi. HEART: Regular rate and rhythm without murmurs ABDOMEN: Soft, nontender, nondistended abdomen. No guarding, no rebound. No masses appreciated. Female : deferred Musculoskeletal: Normal range of motion, no pitting or edema. No cyanosis. NEUROLOGICAL: Cranial nerves grossly intact. Normal speech, normal gait. Normal sensory, motor exams PSYCH: Normal mood, normal affect. SKIN: Warm, Dry, normal turgor, no rashes or lesions noted. Course - Re-evaluation Re-evalutation: 04/07/18 11:34 After discussion with patient do not believe that an antibiotic is presently necessary. I believe she is just has an allergy response with bulging TMs causing the discomfort with the ears. We will place her on Sudafed twice a day for the next 10 days. And believe that is all the treatment will need. Patient is in agreement with this. - Vital Signs Vital signs: Temp Pulse Resp BP Pulse Ox 98.6 F 94 18 123/81 99 04/07/18 11:05 04/07/18 11:05 04/07/18 11:05 04/07/18 11:05 04/07/18 11:05 Discharge - Discharge Clinical Impression: Sinus congestion Condition: Stable Disposition: HOME, SELF-CARE Instructions: Sinusitis ([facility]), Family Physicians / Practices Additional Instructions: As we discussed I believe this is more of an allergy response with your sinuses being congested and clogging of your ears. You have some fluid pushing out a year so we need to do is dry that up. I am going to place you on Sudafed twice a day for the next 10 days which should take care of the problem. May also use some nasal spray spray or nasal saline spray the nose 3 times a day to keep the nose moist and secretions thin. Highly suggest cutting back on any type of smoking. And if you at all blow smoke for your nose stop. Should you spike a fever or have any more difficulty return to ER for recheck. After performing a Medical Screening Examination, I estimate there is LOW risk for ACUTE CORONARY SYNDROME, PULMONARY EMBOLI, RESPIRATORY FAILURE, SEPSIS OR MENINGITIS, thus I consider the discharge disposition reasonable. I have reevaluated this patient multiple times and no significant life threatening changes are noted. The patient and I have discussed the diagnosis and risks, and we agree with discharging home with close follow-up. We also discussed returning to the Emergency Department immediately if new or worsening symptoms occur. We have discussed the symptoms which are most concerning (e.g., changing or worsening pain, trouble swallowing or breathing, neck stiffness, fever) that necessitate immediate return. Prescriptions: Pseudoephedrine HCl [Sudafed 12 Hour] 120 mg PO BID #20 tablet.er Forms: Return to Work, Smoking Cessation Education
== END 2018-04-07 11:44 | disposition home or self-care (01) ==
LOC: ER 10:56
DX: R09.81 Nasal congestion (principal); H92.03 Otalgia, bilateral; R50.9 Fever, unspecified; R05 Cough; F17.210 Nicotine dependence, cigarettes, uncomplicated
CPT/HCPCS: 99282

== ENCOUNTER 2018-07-22 14:46 | Emergency (ER) | payer OTHER ==
[2018-07-22 17:06] VITALS: BP 116/70
--- NOTE | 2018-07-22 17:08 | ER Document Report ---
ED General - General Chief Complaint: Cough Stated Complaint: COUGH Time Seen by Provider: 07/22/18 16:42 Primary Care Provider: PAMELA MALONE MD [ACTIVE STAFF] - Follow up as needed Mode of Arrival: Ambulatory Information source: Patient Notes: 27-year-old female presents emergency department with a 3-week history of rhinorrhea, congestion, cough. Patient states that since Thursday she has had some intermittent fever, chills, and intermittent loose stools. She is been taking [id number] Sudafed and Tylenol for symptom relief. Patient denies any medical problems. She is not on any medications. She denies any surgical history. TRAVEL OUTSIDE OF THE [place] IN LAST 30 DAYS: No - HPI Onset: Other - 3 weeks Onset/Duration: Persistent Quality of pain: No pain Severity: None Pain Level: Denies Associated symptoms: Chills, Nonproductive cough, Diarrhea, Fever, Rhinnorhea Exacerbated by: Denies Relieved by: Denies Similar symptoms previously: Yes Recently seen / treated by doctor: No - Related Data Allergies/Adverse Reactions: No Known Allergies Allergy (Verified 07/22/18 16:41) Past Medical History - General Information source: Patient - Social History Smoking Status: Current Every Day Smoker Chew tobacco use (# tins/day): No Frequency of alcohol use: Social Drug Abuse: None Family History: Reviewed & Not Pertinent, Malignancy. denies: None, Arthritis, CAD, CVA, DM, Hyperlipidemia, Hypertension, Thyroid Disfunction, Other Patient has suicidal ideation: No Patient has homicidal ideation: No - Past Medical History Cardiac Medical History: Denies: Hx Coronary Artery Disease, Hx Heart Attack, Hx Hypertension Pulmonary Medical History: Denies: Hx Asthma, Hx Bronchitis, Hx COPD, Hx Pneumonia Neurological Medical History: Denies: Hx Cerebrovascular Accident, Hx Seizures Renal/ Medical History: Reports: Hx Pelvic Inflammatory Disease. Denies: Hx Peritoneal Dialysis Musculoskeletal Medical History: Denies Hx Arthritis Psychiatric Medical History: Reports: Hx Depression Past Surgical History: Reports: Hx Gynecologic Surgery - d & c; hysteroscopy. LEEP - Immunizations Hx Diphtheria, Pertussis, Tetanus Vaccination: Yes Review of Systems - Review of Systems Constitutional: Chills, Fever, Malaise EENT: Nose congestion, Nose discharge, Sinus pressure Cardiovascular: No symptoms reported Respiratory: Cough Gastrointestinal: Diarrhea Genitourinary: No symptoms reported Female Genitourinary: No symptoms reported Musculoskeletal: No symptoms reported Skin: No symptoms reported Hematologic/Lymphatic: No symptoms reported Neurological/Psychological: No symptoms reported -: Yes All other systems reviewed and negative Physical Exam - Vital signs Vitals: Temp Pulse Resp BP Pulse Ox 98.7 F 87 16 114/70 98 07/22/18 15:44 07/22/18 15:44 07/22/18 15:44 07/22/18 15:44 07/22/18 15:44 - Notes Notes: PHYSICAL EXAMINATION: GENERAL: Well-appearing, well-nourished and in no acute distress. HEAD: Atraumatic, normocephalic. EYES: Pupils equal round and reactive to light, extraocular movements intact, conjunctiva are normal. ENT: Nares patent, oropharynx clear without exudates. Moist mucous membranes. NECK: Normal range of motion, supple without lymphadenopathy LUNGS: Breath sounds clear to auscultation bilaterally and equal. No wheezes rales or rhonchi. HEART: Regular rate and rhythm without murmurs Female : deferred Musculoskeletal: Normal range of motion, no pitting or edema. No cyanosis. NEUROLOGICAL: Cranial nerves grossly intact. Normal speech, normal gait. Normal sensory, motor exams PSYCH: Normal mood, normal affect. SKIN: Warm, Dry, normal turgor, no rashes or lesions noted. Course - Vital Signs Vital signs: Temp Pulse Resp BP Pulse Ox 98.1 F 86 18 116/70 99 07/22/18 17:04 07/22/18 17:04 07/22/18 17:04 07/22/18 17:04 07/22/18 17:04 Discharge - Discharge Clinical Impression: Viral illness Condition: Good Disposition: HOME, SELF-CARE Instructions: Viral Syndrome ([facility]) Prescriptions: Benzonatate [Tessalon Perles 100 mg Capsule] 100 mg PO Q8HP PRN #20 capsule PRN Reason: Azithromycin [Zithromax 250 mg Tablet] 250 mg PO ASDIR PRN #6 tablet PRN Reason: Referrals: PAMELA MALONE MD [ACTIVE STAFF] - Follow up as needed
== END 2018-07-22 17:06 | disposition home or self-care (01) ==
LOC: ER 14:46
DX: B34.9 Viral infection, unspecified (principal); R05 Cough; J34.89 Other specified disorders of nose and nasal sinuses; R19.7 Diarrhea, unspecified; R53.81 Other malaise; F17.200 Nicotine dependence, unspecified, uncomplicated
CPT/HCPCS: 99283